=== PATIENT | male | born 1935 | race Caucasian/White ===

== ENCOUNTER 2022-03-25 00:30 | Day surgery (SDC) | payer MEDICARE, SELFPAY ==
[2022-03-13 13:08] VITALS: BMI 21.3
--- NOTE | 2022-03-13 13:23 | PC.NURSE ---
Addendum entered by Carito Cleary RN 03/19/22 15:33: PT CALLED WITH UPDATED MED LIST PT AWARE TO TAKE METOPROLOL AND AMLODIPINE IF SBP>170 AM OF SURGERY ALONG WITH EYE GTTS Original Note: PRE-OP INSTRUCTIONS, PLEASE READ CAREFULLY Report to the Outpatient Waiting Room, entrance under the green pavilion located off [facility], at time _0700_ on date _03/25/22_. Planned Procedure Time: _0900_. Time changes happen often and if your time is changed the preop area will call you the afternoon before. - You and your visitor will be asked to self-screen and do not enter if you have any COVID symptoms. - We encourage only one visitor and NO visitors under age 16 are allowed at this time. Your visitor will receive communication by the phone number that is given day of service. - The patient visitor is requested to social distance or may leave the building when not with patient due to restrictions. - A mask is required within the hospital. Patients may have clear liquids (water, carbonated beverages, clear teas, apple juice) until 3 hours prior to surgery (0600 AM) with a maximum of 20 ounces. - No food from midnight until time of surgery Take the following medications with a SIP of water the morning of surgery: _AMLODIPINE, EYE DROPS_ Medications to discontinue per physician ___N/A_, Date to take last dose Please no deodorant, or body powder the day of surgery. No jewelry (including any body piercings) or valuables the day of surgery, leave them at home. Please take a shower or bath the night before, or the morning of, surgery with an antibacterial soap. Wear comfortable, loose fitting clothing. - Jewelry must be removed prior to entering the operating room. Rings and piercings that are not removed may be cut off. - The hospital will not accept responsibility for valuables. - Please leave all valuables, including medications, at home the day of surgery. If you are going home after surgery, a licensed canal driver must drive you home. - NO public transportation without another adult. - We recommend that an adult stay with you for 24 hours following discharge. - We also recommend that you do not drive, make important decision, drink alcoholic beverages, or take any drugs that were not prescribed by your health care provider for at least 24 hours after your discharge time. Follow any additional instructions given to you from your surgeon. HIBIC[facility] SHOWER AM OF SURGERY If you or anyone in your household have experienced Covid symptoms in the past week, please notify your surgeon or the nurse liaison at the phone number below for possible testing. Telephone instructions given to ___PT____and asked if any additional questions and then verbalized understanding. Patient advised to call surgeon office or pre surgery nurse liaison [phone] if any additional questions.
--- NOTE | 2022-03-25 06:40 | PM.SD2 ---
Same Day Admit/Disch: HPI History of Present Illness Chief complaint: Lt Ing Hernia Narrative: Sean Art is a 86 year old male with a left inguinal bulge that he noticed back in December. It seems to be getting larger and is occasionally uncomfortable. He was seen in the office and found to have a left inguinal hernia that is reducible. He is taken to surgery now for left inguinal hernia repair. Patient has some significant comorbidities with coronary disease status post coronary bypass grafting. He has a permanent pacer. He also has a history of carotid endarterectomy. 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 He was also noted on exam to have an incisional hernia in the epigastrium from his median sternotomy. He is taken to surgery now for left inguinal hernia repair under anesthesia as an outpatient. [facility] Past Medical History Medical History Heart disease High cholesterol Hypertension Surgical History Surgical History History of bladder surgery History of carotid endarterectomy History of coronary artery bypass graft History of pacemaker History of surgery on lower extremity Family History Family History Father Cerebrovascular accident Sibling Cancer Grandparent Diabetes mellitus Social History Social History Smoking status: Former smoker Tobacco type: cigarettes Alcohol intake: former Living arrangements: with family Spiritual care concerns: No Same Day Admit/Disch: Med Pre-admit Medications Home Medications Medication Instructions Recorded Confirmed Type amlodipine 2.5 mg tablet See Rx Instructions .Route .COMPLEX 02/10/22 03/13/22 History ascorbic acid (vitamin C) 500 mg 500 mg PO QAM 02/10/22 03/13/22 History capsule aspirin 81 mg capsule 81 mg PO DAILY 02/10/22 03/13/22 History atorvastatin 40 mg tablet 40 mg PO DAILY 02/10/22 03/13/22 History cholecalciferol (vitamin D3) 25 50 mcg PO DAILY 02/10/22 03/13/22 History mcg (1,000 unit) capsule finasteride 5 mg tablet 5 mg PO DAILY 02/10/22 03/13/22 History metoprolol succinate 25 mg 12.5 mg PO DAILY 02/10/22 03/13/22 History tablet,extended release 24 hr tamsulosin 0.4 mg capsule 0.4 mg PO DAILY 02/10/22 03/13/22 History timolol 0.5 %-latanoprost 0.005 % 1 drp ophthalmic (eye) BID 03/13/22 03/13/22 History (PF) eye drops metoprolol succinate 25 mg 25 mg PO QAM 03/19/22 03/19/22 History tablet,extended release 24 hr hydrocodone 5 mg-acetaminophen 325 1 - 2 tablet PO Q6H PRN pain #7 03/25/22 Rx mg tablet tabs ibuprofen 600 mg tablet 600 mg PO Q6H PRN pain #14 tabs 03/25/22 Rx Exam Const: General: comfortable, no acute distress, alert and awake HENMT: Head: normocephalic and atraumatic Mouth: Yes Normal oral and palatal mucosa present Eyes: Conjunctivae: conjunctivae normal Pupils: Equal, round and reactive pupils present EOM: EOMs intact bilaterally Neck: Neck: normal visual inspection, no lymphadenopathy and nontender Resp: Effort & Inspection: normal respiratory effort Auscultation: clear to auscultation bilaterally Cardio: Rate: regular rate Rhythm: regular rhythm Heart sounds: no gallops, no murmurs and no rubs GI: Inspection: non-distended and visible herniation ( epigastric incisional, lower extent of sternotomy incision) GI Palp: Yes Soft to palpation, No Tenderness to palpation present (GI), No Hepatomegaly present, No Splenomegaly present and Yes Hernia present ( 5 cm defect, reducible, nontender) : Male General Exam: Yes hernia ( reducible left inguinal hernia, no right inguinal hernia) Penis: Yes normal penis Scrotum: scrotum normal Testes: Testes normal Skin: Lesions: no lesions Rashes: no rashes Neuro: General: no focal motor deficits and CN's
--- NOTE | 2022-03-25 06:48 | WPDHPUPDATE1 ---
History and Physical Update Update Date/Time: 03/25/22 06:48 History and Physical has been reviewed, including an updated exam of the patient. There are NO changes in the patient's condition. Risks, benefits, and alternatives have been discussed and questions answered. Patient agrees to proceed with procedure.
[2022-03-25] MEDS: LACTATED RINGERS 1,000 ML 30 ML IV CONT (07:25)
[2022-03-25] MEDS: ACETAMINOPHEN 500 MG TABLET 1000 MG PO (07:25)
[2022-03-25] MEDS: KETOROLAC 15 MG/ML VIAL (*BKC) IV PUSH (07:27)
[2022-03-25 07:31] VITALS: BP 164/87; PULSE 67; RESP 16; TEMP 36.9; O2SAT 100
--- NOTE | 2022-03-25 07:46 | WPDANESEPPF ---
Anes - Initial Pre Proc Eval Procedure: Operation Date: 03/25/22 09:00 Proposed Procedures p Left Inguinal Hernia Repair - Guille Spencer MD Date/Time: 03/25/22 07:46 Surgeon: Guille Spencer MD Pre Op Diagnosis: Lt Ing Hernia Patient Data Age: 86 Gender: M Height: 1.73 m Weight: 65.4 kg Last Vital Signs Temp 36.9 C 03/25/22 07:31 Pulse 67 03/25/22 07:31 Resp 16 03/25/22 07:31 BP 164/87 H 03/25/22 07:31 Pulse Ox 100 03/25/22 07:31 O2 Del Method Room Air 03/25/22 07:31 Allergies Allergy/AdvReac Type Severity Reaction Status Date / Time tetanus toxoid, adsorbed Allergy Severe SWELLING Verified 03/25/22 06:46 Penicillins Allergy Unknown RASH Verified 03/25/22 06:46 Home Medications Medication Instructions Recorded Confirmed Type amlodipine 2.5 mg tablet See Rx Instructions .Route .COMPLEX 02/10/22 03/13/22 History ascorbic acid (vitamin C) 500 mg 500 mg PO QAM 02/10/22 03/13/22 History capsule aspirin 81 mg capsule 81 mg PO DAILY 02/10/22 03/13/22 History atorvastatin 40 mg tablet 40 mg PO DAILY 02/10/22 03/13/22 History cholecalciferol (vitamin D3) 25 50 mcg PO DAILY 02/10/22 03/13/22 History mcg (1,000 unit) capsule finasteride 5 mg tablet 5 mg PO DAILY 02/10/22 03/13/22 History metoprolol succinate 25 mg 12.5 mg PO DAILY 02/10/22 03/13/22 History tablet,extended release 24 hr tamsulosin 0.4 mg capsule 0.4 mg PO DAILY 02/10/22 03/13/22 History timolol 0.5 %-latanoprost 0.005 % 1 drp ophthalmic (eye) BID 03/13/22 03/13/22 History (PF) eye drops metoprolol succinate 25 mg 25 mg PO QAM 03/19/22 03/19/22 History tablet,extended release 24 hr Patient hx anesthesia problems: none Family hx anesthesia problems: none Results Review: All pre-operative results and documents have been reviewed as part of the pre-operative evaluation. [facility] Past Medical History Medical History Heart disease High cholesterol Hypertension Surgical History Surgical History History of bladder surgery History of carotid endarterectomy History of coronary artery bypass graft History of pacemaker History of surgery on lower extremity Family History Family History Father Cerebrovascular accident Sibling Cancer Grandparent Diabetes mellitus Social History Social History Smoking status: Former smoker Tobacco type: cigarettes Alcohol intake: former Living arrangements: with family Spiritual care concerns: No Anes - Eval Final PreProcedure Day of Procedure 03/25/22 07:46 Patient weight: normal Heart: regular rate and rhythm Lungs: clear to auscultation Airway: Mallampati scale class II Neurological: alert and oriented Last oral intake: >/= 8 hours ASA classification: III Emergent: no Anesthetic plan: proceed Anesthesia type and monitoring: general GIVS and standard monitoring Results Review: All pre-operative results and documents have been reviewed as part of the pre-operative evaluation. Informed Consent: The patient's anesthetic plan and its attendant risks and benefits were discussed with the patient/family/POA. Questions were solicited and answers provided to the satisfaction of the patient/family/POA.
[2022-03-25] MEDS: ceFAZolin 2 GM/D5W 50 ML 2 GM/50 ML BAG IVPB (08:54)
[2022-03-25] MEDS: BUPIVACAINE/EPINEPHRINE 0.25% 50 ML VIAL INFILTRATE (09:15)
--- NOTE | 2022-03-25 10:01 | W.PM.PROC2 ---
Procedure Note - Detailed Date of Procedure 03/25/22 Pre-op Diagnosis Lt Ing Hernia Post-op Diagnosis Same Procedure Performed Left inguinal hernia repair with large PerFix Light plug and patch Surgeon Guille Spencer MD Senior Manager [employer] [place] MCCARTY Anesthesia General (G IV S), Local (0.25% Marcaine with epinephrine) and Other (Xaracoll) Indications Patient noted a bulge in the left groin back in December. It has gotten bigger and is occasionally painful. He is taken to surgery now for left inguinal hernia repair. Findings He had an indirect left inguinal hernia. Description of Procedure Patient was taken to surgery and anesthesia was introduced. Left groin and genitalia were prepped and draped. The proposed incision was marked on the skin. Local was infiltrated into the skin and the deeper subcutaneous tissues. Incision was made dissection was carried down through the subcutaneous. Crossing veins were cauterized and divided. We dissected through Allen's fascia and down to the external oblique aponeurosis. Additional local was infiltrated deep to the aponeurosis in the area of the inguinal canal and its contents. The aponeurosis was opened laterally and extended medially through the external ring. Leaves of the aponeurosis were freed from the underlying inguinal canal contents. The cord was then mobilized medially on a Anu drain. It was dissected back to the internal ring. There was a lipoma of the cord which I carefully dissected free from the cord structures and then amputated near the internal ring. The hernia sac was found fairly near the internal ring. It was dissected and was actually larger than it initially appeared. The sac was dissected back to a high dissection. It was then dunked into the retroperitoneum. A large PerFix Light plug was then placed in the defect. It was sutured to the transversalis fascia with interrupted 3-0 Vicryl suture. I then cut the patch to the appropriate size and placed it over the inguinal canal floor. The lateral leaves were then passed beyond the cord. The 1st pieces Xaracoll was then laid over the patch. The ileoinguinal nerve had been left attached to the cord and uninjured through the surgery. The cord and ilioinguinal nerve were then laid over the Xaracoll. The external oblique aponeurosis was closed with interrupted 3-0 Vicryl suture. Second pieces Xaracoll was placed over the aponeurosis. Allen's fascia was closed with interrupted 3-0 Vicryl suture. The last piece of Xaracoll was placed in the subcutaneous. The skin was loosely approximated with interrupted 4-0 Vicryl subcuticular sutures. The skin was finally closed with a running 4-0 Monocryl skin suture. Wound was dressed with Exofin surgical adhesive. Patient was awakened and taken to recovery in good condition. Sponge and needle counts were correct x2. Implants Large PerFix Light plug and patch Estimated Blood Loss -5 Drains No Packing No Pathology None sent Complications No immediate complications Condition Stable Disposition Same day [facility] Billing Surgery - Charge Forward: Surgery Billing (Left inguinal hernia repair)
[2022-03-25 10:04] VITALS: BP 123/74; PULSE 55; RESP 16; O2SAT 100
[2022-03-25 10:34] VITALS: BP 159/86; PULSE 54; RESP 16; O2SAT 100
--- NOTE | 2022-03-25 10:56 | SUR.PHASEII ---
pt informed he needs to void before he leaves. pt given juice and coffee. pt son at bedside.
== END 2022-03-25 11:21 | disposition home or self-care (01) ==
PROVIDERS: PCP Pediatrics; Visit Provider Surgery
PROC: (CPT 49505; principal; 2022-03-25 09:00)
DX: K40.90 Unilateral inguinal hernia, without obstruction or gangrene, not specified as recurrent (principal); K43.2 Incisional hernia without obstruction or gangrene; I11.9 Hypertensive heart disease without heart failure; E78.00 Pure hypercholesterolemia, unspecified; I25.10 Atherosclerotic heart disease of native coronary artery without angina pectoris; N40.1 Benign prostatic hyperplasia with lower urinary tract symptoms; N13.9 Obstructive and reflux uropathy, unspecified; Z95.1 Presence of aortocoronary bypass graft; Z95.0 Presence of cardiac pacemaker; Z87.891 Personal history of nicotine dependence; Z79.82 Long term (current) use of aspirin
CPT/HCPCS: 49505; A9270; C1781; J0690; J1885; J2704; J3010; J7120